=== PATIENT | female | born 1995 | race Caucasian/White ===

== ENCOUNTER → 2016-08-24 | Day surgery (SDC) | payer OTHER ==
[~2016-08-24] MED LIST: ACETAMINOPHEN 1000 MG/100 ML VIAL IV ONE; BACITRACIN IM FOR SOLN 50,000 UNIT VIAL ONE; BUPIVACAINE/EPINEPHRINE 0.25% PF 30 ML VIAL ONE; GENTAMICIN SULFATE 80 MG/2 ML VIAL ONE; LACTATED RINGER'S 1,000 ML BAG IV ONE; LACTATED RINGER'S 1000 ML INJ 1,000 ML ONE; LIDOCAINE 1%/EPINEPHrine 1:100,000 SOLN 20 ML VIAL ONE; MIDAZOLAM HCL 2 MG/2 ML VIAL ONE; ONDANSETRON HCL 4 MG/2 ML VIAL IV PUSH ONE; PROMETHAZINE INJ 25 MG/ML VIAL ONE; PROPOFOL 100 MG/10 ML INJ IV ONE; SODIUM CHLORIDE 0.9% 20 ML VIAL ONE; SODIUM CHLORIDE 0.9% INJ 100 ML IV ONE; ceFAZolin INJ 1,000 MG VIAL ONE
--- NOTE | 2016-08-24 12:25 | TN ---
cc: ELIAS CARSON M.D. DATE OF SURGERY 08/24/2016 PREOPERATIVE DIAGNOSIS Wishes of breast enhancement. POSTOPERATIVE DIAGNOSIS Wishes of breast enhancement. PROCEDURE Bilateral augmentation mammoplasty. SURGEON Elias Carson MD/[employer]ELOPER AND [employer] Pawel Bell, MS-3 ANESTHESIA LMA general, breast block 60 cc, 30 cc per breast with a combination of 1% lidocaine with epinephrine mixed with 0.25% Marcaine in a 2:1 ratio. IMPLANT DATA PLACEMENT AND TECHNIQUE Inframammary retroperitoneal gel Jbphh ultra high profile. Volume 590 CC, serial number of the right breast device [id number]. The serial number of the left breast device is [id number]. PROCEDURE She was properly consented, marked, properly anesthetized. The skin was sterilized with Betadine solution, a breast block was applied. Proceeded to perform a 5 to 5-1/2 cm incision preserving [place]'s fascia, assessing and releasing the inferomedial fibers of the pectoralis major muscle. The pocket was properly created without any difficulties and irrigated with triple antibiotic solution. Isolation of the nipple-areolar complex was done from the beginning of the case and now the incision has been also isolated. Utilizing no-touch technique, the implant was introduced without further difficulties. The contralateral side was approached in exactly the same manner. The patient was sat up, blunt touch-ups done in order to establish best symmetry possible. With this, I proceeded and performed of the closure of the wound utilizing multiple 2-0 Monocryl sutures in Kenya's fascia, dermis and subcu. After Mastisol, Steri-Strips were applied. Overall, the patient tolerated the procedure well. She was awakened and extubated in the operating room and transferred back to postanesthesia care unit in stable condition. There were no complications appreciated. The patient tolerated the procedure fairly well. MD SOPHIA Bejarano/MARIA L /12:07 PM /12:20 PM
== END | disposition home or self-care (01) ==
LOC: ESDC 09:29
PROVIDERS: ATTEND Plastic Surgery
DX: Z41.1 Encounter for cosmetic surgery (principal)
CPT/HCPCS: 00402; 19325; C1789; J0131; J0690; J1580; J2250; J2405; J2550; J3010; J7120

== ENCOUNTER → 2017-04-02 | Day surgery (SDC) | payer OTHER ==
--- NOTE | 2017-03-30 13:01 | TH ---
cc: SILVIO PEREZ M.D. DATE DATE OF 1995 PROCEDURE TO BE PERFORMED Bilateral revision augmentation. HISTORY OF PRESENT ILLNESS This is a 21-year-old female who back in August of this current year underwent an augmentation mammoplasty. Unfortunately the patient has developed some bottoming down reason for which we are doing this procedure. PAST MEDICAL HISTORY The patient medical history of this patient is otherwise unremarkable. ALLERGIES Denies any allergies. MEDICATIONS Denies any medications. PHYSICAL EXAM CONSTITUTIONAL: General appearance. The patient is a well-developed female in no acute distress. Body habitus is within normal limits. There appear to be no deformities. Appears to have attention to grooming. HEENT: Eyes Conjunctivae and lids are within normal anatomical limits. The pupils are reactive to light and accommodation, size, and symmetry. There is no evidence of exudate, hemorrhage, or vessel change. Ears, mouth, nose, and throat The external inspection of the ears and nose fails to demonstrate any pathology, scars, lesions, or masses. Nasal mucosa, septum, and turbinates appear to be well hydrated as well as the lips and gums. No evidence of masses in the hypopharynx or submental area. RESPIRATORY: The patient shows no evidence of intercostal refractions. Otherwise, lungs are clear to auscultation without any abnormal sounds or rubs. CARDIOVASCULAR: The patient has a normal heart rate and rhythm. There is no evidence of noticed carotid bruits. Femoral pulses and pedal pulses in extremities are also within normal limits. GASTROINTESTINAL/ABDOMEN: Soft with no evidence of masses or tenderness. Unable to palpate the liver or spleen. No evidence of hernia. BREASTS: This patient does have a bottoming out of the right breast compared to the left, however, there is some weakness already on the left side. MUSCULOSKELETAL: Appears to be reasonable range of motion on the head, neck, spine, ribs, pelvis, right upper extremity, left upper extremity, right lower extremity, and left lower extremity. The muscle strength and tone appears to be equal and within accepted limits. SKIN: There is no rashes, lesions, or ulcers on the trunk, back, and extremities. NEUROLOGICAL: Examination is grossly normal. PSYCHIATRIC: The patient appears to have good orientation of time, place, and person. Does not appear to have any mood effects of depression, anxiety, or agitation. ASSESSMENT Bottoming out of the right breast compared to the left, however, there is some weakness already on the left side. PLAN The plan is bilateral revision augmentation under anesthesia, including some reinforced with Alloderm. The risks and possible complications discussed with the patient. MD SOPHIA Bejarano/MARIA L /12:34 PM /12:52 PM
[~2017-04-02] MED LIST changes: +ACETAMINOPHEN 1000 MG/100 ML 100 ML IV ONE; -ACETAMINOPHEN 1000 MG/100 ML VIAL IV ONE; +ACETAMINOPHEN/HYDROcodone 325 MG/5 MG TAB ONE; +APREPITANT 40 MG CAP ONE; +BUPIVACAINE/EPINEPHRINE 0.25% 50 ML VIAL ONE; -BUPIVACAINE/EPINEPHRINE 0.25% PF 30 ML VIAL ONE; -LACTATED RINGER'S 1,000 ML BAG IV ONE; -LACTATED RINGER'S 1000 ML INJ 1,000 ML ONE; -LIDOCAINE 1%/EPINEPHrine 1:100,000 SOLN 20 ML VIAL ONE; +LIDOCAINE 1%/EPINEPHrine 1:200,000 PF SOLN 30 ML VIAL ONE; +MEPERIDINE HCL 25 MG/ML VIAL ONE; -PROPOFOL 100 MG/10 ML INJ IV ONE; +PROPOFOL 200 MG/20 ML AMP IV ONE; -SODIUM CHLORIDE 0.9% INJ 100 ML IV ONE
--- NOTE | 2017-04-02 12:01 | TN ---
cc: ELIAS CARSON M.D. DATE OF SURGERY 04/02/2017 PREOPERATIVE DIAGNOSIS Bilateral augmentation mammoplasty with further bottoming down on the right with weakness on the left breast. I also reinforced the base with a 6 x 16 AlloMax. PROCEDURE Bilateral revision augmentation. SURGEON Elias Carson MD ANESTHESIA LMA general. I also utilized 60 cc of 1% lidocaine with epinephrine mixed with 0.25% Marcaine in a 2:1 ratio. COMPLICATIONS None. PROCEDURE IN DETAIL She was properly consented, marked, anesthetized, the skin sterilized with Betadine solution and sterile draping applied. Isolation of the nipple-areolar complex was done. Utilizing the previous inframammary incision, a trap door incision was carried out through which the capsule was encountered. The implant was removed without any difficulties. Irrigation with antibiotic solution was carried out in the usual fashion. Lateral inferior capsulorrhaphies were done utilizing multiple layers of 0-silk and reinforcement was done with a 3 x 16 which was basically tailored to cover the lower pole inferior and laterally, medial lateral of the each breast. It was anchored with the same 2-0 Monocryl suture as well as #1 pledgets of silk. This was patted also with the Xeroform gauze. The contralateral side was approached exactly in the same manner. The implanted the same implants as it was kept in a sterile container. Finding no evidence of pathology, the wounds were closed in multiple 2-0 Monocryl suture layers in the capsule, dermis and subcu. Mastisol and Steri-Strips were applied thereafter. The patient was awakened and extubated in the operating room and transferred back to the postanesthesia care unit in stable condition. No complications appreciated. The patient tolerated the procedure fairly well. MD SOPHIA Bejarano/JACLYN /11:45 AM /11:51 AM
== END | disposition home or self-care (01) ==
LOC: ESDC 09:20
PROVIDERS: ATTEND Plastic Surgery
DX: Z41.1 Encounter for cosmetic surgery (principal)
CPT/HCPCS: 00402; 15777; 19325; J0131; J0690; J1580; J2175; J2250; J2405; J2550; J3010; J8501; Q4100